=== PATIENT | male | born 1985 | race Caucasian/White ===

== ENCOUNTER 2022-06-22 11:31 | Emergency (ER) | payer SELFPAY ==
[~2022-06-22] VITALS: Ht 165.1 cm; Wt 54.2 kg
[2022-06-22] MEDS ORDERED: PROAIR DIGIHAL90 MCG (11:50)
[2022-06-22] MEDS ORDERED: ALBUTEROL/IPRATROPIUM 3 ML NEB NEB ONE (12:30)
[2022-06-22] MEDS ORDERED: PREDNISONE 20 MG TAB PO ONE (12:30)
[2022-06-22] MEDS ORDERED: PROVENTIL HFA6.7 GM INH (13:11)
[2022-06-22] MEDS ORDERED: AMOXICILLIN500 MG PO (13:12)
[2022-06-22] MEDS ORDERED: PREDNISONE20 MG PO (13:14)
== END 2022-06-22 13:26 | disposition home or self-care (01) ==
LOC: FSED 11:36
DX: R50.9 Fever, unspecified (principal); J02.0 Streptococcal pharyngitis; J45.901 Unspecified asthma with (acute) exacerbation; R05.9 Cough, unspecified
CPT/HCPCS: 83518; 87400; 99283; J7512

== ENCOUNTER 2022-07-23 13:56 | Emergency (ER) | payer SELFPAY ==
[~2022-07-23] VITALS: Ht 160 cm; Wt 58.1 kg
[~2022-07-23 13:56] MED LIST: AMOXICILLIN500 MG PO; PREDNISONE20 MG PO; PROAIR DIGIHAL90 MCG; PROVENTIL HFA6.7 GM INH
[2022-07-23] MEDS ORDERED: Clindamycin INJ 150 MG/ML 600 MG Vial IM STA (15:14)
[2022-07-23] MEDS ORDERED: KEFLEX125 MG/5 M PO (15:51)
[2022-07-23] MEDS ORDERED: MUPIROCIN15 GM TP (15:53)
== END 2022-07-23 16:11 | disposition home or self-care (01) ==
LOC: FSED 14:01
DX: T81.30XA Disruption of wound, unspecified, initial encounter (principal); L03.114 Cellulitis of left upper limb; J45.909 Unspecified asthma, uncomplicated; F17.210 Nicotine dependence, cigarettes, uncomplicated
CPT/HCPCS: 96372; 99282; J0690